=== PATIENT | female | born 1980 | race Caucasian/White ===

== ENCOUNTER 2019-10-19 17:43 | Emergency (ER) | payer OTHER ==
[2019-10-21 12:18] LABS: SARS-CoV-2 MS2 Positive; SARS-CoV-2 N Gene Negative; SARS-CoV-2 S Gene Negative; SARS-CoV-2 orf1ab Negative
== END 2019-10-19 18:20 | disposition home or self-care (01) ==
LOC: MADERS 17:43
DX: R05 Cough (principal); Z20.828 Contact with and (suspected) exposure to other viral communicable diseases
CPT/HCPCS: 87635; U0003

== ENCOUNTER 2022-06-12 07:54 | Emergency (ER) | payer OTHER | END 2022-06-12 09:09 | disposition home or self-care (01) | LOC: MADERS 07:54 | DX: K04.7 Periapical abscess without sinus (principal) | CPT/HCPCS: 99282 ==

== ENCOUNTER 2023-12-26 07:04 | Emergency (ER) | payer BC, OTHER | END 2023-12-26 07:55 | disposition home or self-care (01) | LOC: MADERS 07:04 | DX: H92.02 Otalgia, left ear (principal) | CPT/HCPCS: 99282 ==